=== PATIENT | female | born 1945 | race African-American/Black ===

== ENCOUNTER 2020-07-24 18:33 | Inpatient (IN) | payer MEDICARE, MEDICAID, SELFPAY ==
--- NOTE | ~2020-07-24 | CT_ITS ---
EXAMINATION: CT brain wo con EXAM DATE: 07/24/2020 20:04 INDICATION: Altered mental status. TECHNIQUE: Spiral CT of the head was performed without contrast. Axial, coronal and sagittal images were reviewed. The dose-length product (DLP) for this examination was 605.33 mGy-cm. The exposure w as tailored according to patient size, and iterative reconstruction (ASIR) was used as additional dos e reduction technique. There is no prior study for comparison. FINDINGS: There is no acute intraparenchymal hemorrhage. No evidence of intraparenchymal brain mass lesion. No evidence of acute infarction. Please note that initial head CT has limited sensitivity f or small or acute infarctions. Small old right parietotemporal lobe infarction. There is mild periv entricular and subcortical hypodensity, nonspecific but probably related to small vessel ischemic dis ease. There is moderate prominence of the sulci and ventricles related to cerebral atrophy. There is intracranial carotid arteriosclerosis. There are no extra-axial collections. There is no mass e ffect or midline shift. The orbits are unremarkable. Soft tissue is unremarkable. The visualized s inuses and mastoid air cells are well aerated. IMPRESSION: 1. No acute intracranial findings. 2. Chronic age related findings. 3. Small right parietotemporal lobe infarction. Reviewed, dictated and finalized at location A. ING SIGNAL OFFICER
--- NOTE | ~2020-07-24 | XR_ITS ---
EXAMINATION: XR barium swallow modified DATE: 07/25/2020 11:07 INDICATION: Aphasia. TECHNIQUE: The patient was given barium-containing material of multiple consistencies to swallow by t he speech pathologist while I performed fluoroscopy. Fluoroscopy exposure time was 1.9 minutes. The n umber of fluoroscopy images saved to the PACS was 1. Dose-area product was 1.289 Gy-cm^2. FINDINGS: There is reduced laryngeal elevation. There is intermittent laryngeal penetration with thin liquids. No aspiration. IMPRESSION: 1. Laryngeal penetration with thin liquids. No aspiration. 2. Please refer to the speech therapy report for recommendations. Reviewed, dictated and finalized at location A. OUT WORKER
--- NOTE | ~2020-07-24 | XR_ITS ---
EXAMINATION: XR chest 1V EXAM DATE: 07/24/2020 20:11 INDICATION: Transient alteration of awareness. TECHNIQUE: Portable AP frontal chest x-ray was obtained. There is no prior study for comparison. FINDINGS: The lungs are clear. There are no pleural effusions. Cardiac silhouette is prominent but magnified on this AP technique. There is no pneumothorax suspected. The bones and soft tissues are unremarkable. IMPRESSION: No acute cardiopulmonary findings. Reviewed, dictated and finalized at location A. OR INTERNET SALES CONSULTANT
--- NOTE | ~2020-07-24 | MR_ITS ---
EXAMINATION: MR brain/brain stem wo/w con DATE: 07/25/2020 11:38 INDICATION: Stroke. TECHNIQUE: Magnetic resonance imaging (MRI) of the brain and brainstem was performed without and with 14 mL MultiHance intravenous contrast. Sequences included sagittal and axial T1-weighted FSE, axial diffusion-weighted FS EPI, axial T2*-weighted GRE, axial T2-weighted FLAIR Propeller, and axial T2-we ighted Propeller. Postcontrast sequences included axial and coronal T1-weighted FSE. Apparent diffusi on coefficient (ADC) maps were created. COMPARISON: Head CT 07/24/2020 FINDINGS: There are scattered areas of nonspecific increased T2-weighted signal intensity in the cere bral white matter. There is an old infarct in right temporal parietal region. There is no intracrania l hemorrhage, acute infarction, or abnormal intracranial mass lesion. The ventricles are normal in si ze. The orbits are normal. There is mucosal thickening in the paranasal sinuses. There is a small lef t mastoid effusion. IMPRESSION: 1. 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 2. Moderate nonspecific cerebral white matter disease, which likely represents chronic small vessel i schemic disease. Reviewed, dictated and finalized at location A. DRIVER OPERATOR [place]ED IMPRESSION: 1. 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 2. Moderate nonspecific cerebral white matter disease, which likely represents chronic small vessel ischemic disease.
--- NOTE | 2020-07-24 18:31 | ED.AMS ---
HPI - Altered Mental Status General Chief Complaint: Altered Mental Status Stated Complaint: altered mental status Source: patient and EMS Mode of arrival: EMS Limitations: clinical condition and dementia History of Present Illness HPI narrative: Patient is a 75-year-old with a history of type 2 diabetes, schizophrenia, bipolar disorder who presents for evaluation of altered mental status. Patient reportedly has been deteriorating over the past 10 days, noted to last being normal on [place] cassie. Patient with cough, facility denied any fever, stated she was recently tested for Covid and negative. Patient currently not able to state her name. She is not giving any verbal complaint. She is awake and alert in the room. She does follow simple commands. No other family is present. Per family, Dinorah over the phone, she was talking normally yesterday. Pt had not been complaining of anything recently. Per family, staff was concerned that the patient was not eating or drinking as much lately. No fever, vomiting. No reported vomiting pain. Related Data Home Medications Medication Instructions Recorded Confirmed albuterol sulfate 2.5 mg INHALATION Q4H PRN 07/24/20 benzonatate 100 mg PO TID PRN 07/24/20 calcitriol 0.25 mcg PO DAILY 07/24/20 donepezil 10 mg PO HS 07/24/20 ferrous sulfate 325 mg PO DAILY 07/24/20 fluticasone furoate-vilanterol 1 inh INHALATION DAILY 07/24/20 [Breo Ellipta] metformin 500 mg PO BID 07/24/20 omeprazole 20 mg PO DAILY 07/24/20 pravastatin 40 mg PO DAILY 07/24/20 risperidone 2 mg PO BID 07/24/20 sertraline 75 mg DAILY 07/24/20 tramadol 50 mg PO Q6H PRN 07/24/20 Allergies Allergy/AdvReac Type Severity Reaction Status Date / Time No Known Allergies Allergy Verified 07/24/20 19:43 Review of Systems Review of Systems: ROS unobtainable: Yes unobtainable due to mental status PMFSH Past Medical History Medical History (Updated 07/24/20 @ 23:37 by Triny Luz MD) Bipolar disorder Dementia Hypertension Schizophrenia Type 2 diabetes mellitus Social History Social History (Updated 07/24/20 @ 18:45 by Triny Luz MD) Smoking status: Former smoker Alcohol intake: former Substance use: current Gender identity (if verbalized by the patient): Female Exam Narrative: Exam Narrative: GENERAL: Awake, alert, non verbal HEAD: Normocephalic, atraumatic. EYES: PERRLA and EOMI. ENT: Nares clear, no rhinorrhea or epistaxis. Mucous membranes moist. NECK: Supple. CHEST: No respiratory distress, breathing even and non labored HEART: Regular rate, sinus rhythm ABDOMEN:Non distended, non tender EXTREMITIES: Normal range of motion. No edema. SKIN: Warm, dry, no rash. NEURO:No focal deficits. Alert, following simple commands. Climate Change Analyst strength 5/5 bilaterally. Course Vital Signs Vital signs: Vital Signs Temperature 36.3 C L 07/24/20 18:32 Pulse Rate 81 07/24/20 18:32 Respiratory Rate 14 07/24/20 18:32 Blood Pressure 112/73 07/24/20 18:32 Pulse Oximetry 95 07/24/20 18:32 Temperature 36.3 C L 07/24/20 18:32 Pulse Rate 78 07/25/20 00:04 Respiratory Rate 16 07/25/20 00:04 Blood Pressure 116/51 L 07/25/20 00:04 Pulse Oximetry 97 07/25/20 00:04 MDM - Altered Mental Status MDM Narrative Medical decision making narrative: Patient presented for evaluation of decreased verbal responsiveness per care facility. At the time of assessment, ABCs are intact and vital signs are stable. Patient is not verbal for me but then is verbal for the nurse, then refuses her ABG. Patient states nothing is wrong with me. Then when I assessed the patient and I asked her to state her name she says nothing. Laboratory work-up and imaging work-up is relatively reassuring. No leukocytosis. No severe electrolyte derangement. No acute kidney injury. No UTI. No elevation in troponin. No evidence of thyrotoxicosis or hypothyroidism. Chest x-ray without evidence
[2020-07-24 18:32] VITALS: BP 112/73; PULSE 81; RESP 14; TEMP 36.3; O2SAT 95
--- NOTE | 2020-07-24 18:34 | ECG_ITS ---
Measurements Intervals [place] Rate: 82 P: 53 NE: 138 QRS: 2 QRSD: 103 T: 59 QT: 383 QTc: 450 Interpretive Statements SINUS RHYTHM VENTRICULAR PREMATURE COMPLEX BORDERLINE R WAVE PROGRESSION, ANTERIOR LEADS BORDERLINE T WAVE ABNORMALITY- HIGH LATERAL LEADS BORDERLINE ECG Electronically Signed On 07-25-2020 6:43:34 REMEDIAL MASSEUR by Bob Bellamy D.O.
--- NOTE | 2020-07-24 19:37 | PC.NURSE ---
resp unable to obtain abg, provider aware attempted to draw labs, unable to obtain,provider aware pt refusing, pt has guardian,provider to aid RN
[2020-07-24 19:40] VITALS: BP 113/84; PULSE 77; RESP 16
[2020-07-24] MEDS: SODIUM CHLORIDE 0.9% IV 1,000 ML 999 ML IV CONT (20:28)
[2020-07-24 20:29] VITALS: BP 119/65; PULSE 96; RESP 22; O2SAT 92
[2020-07-24 20:30] LABS: Basophils Absolute Auto 0.1 K/mm3 (0.0-0.1); Basophils Percent Auto 0.8 % (0.2-1.2); Eosinophils Absolute Auto 0.1 K/mm3 (0-0.3); Hematocrit 48.2 % (37.0-47.0); Hemoglobin 15.1 g/dL (12.0-15.0); Immature Granulocyte Absolute 0.01 K/mm3 (0.00-0.031); Immature Granulocyte Percent A 0.2 % (0-0.5); Lymphocytes Absolute Auto 3.38 K/mm3 (0.9-3.2); Lymphocytes Percent Auto 57.4 % (18.3-44.2); Mean Corpuscular HGB Conc 31.3 g/dl (32-36); Mean Corpuscular Volume 92.5 fl (80-100); Mean Platelet Volume 10.9 fl (7.4-10.4); Monocytes Absolute Auto 0.7 K/mm3 (0.1-0.6); Monocytes Percent Auto 12.2 % (2.6-8.5); Neutrophils Absolute Auto 1.7 K/mm3 (1.3-6.7); Neutrophils Percent Auto 28.4 % (45.5-73.1); Platelet Count Result 220 k/mm3 (150-375); Red Blood Count 5.21 M/mm3 (4.2-5.4); Red Cell Distribution Width 16.8 % (11.5-14.5); White Blood Count 5.9 K/mm3 (4.5-10.0)
[2020-07-24 20:40] LABS: INR 1.1; Prothrombin Time 14.5 Seconds (11.1-14.7)
[2020-07-24 20:41] LABS: Partial Thromboplastin Time 27.9 SECONDS (22.3-36.8)
[2020-07-24 20:43] LABS: Lactic Acid Reflex 1.5 mmol/L (0.7-2.1)
[2020-07-24 20:44] LABS: Alanine Aminotransferase 18 U/L (4-35); Albumin Level 4.2 g/dL (3.5-5.1); Alkaline Phosphatase 72 U/L (38-126); Ammonia < 9 umol/L (9-30); Anion Gap 6 mmol/L (8-16); Aspartate Amino Transferase 26 U/L (14-36); Bilirubin,Total 0.7 mg/dL (0.2-1.3); Blood Urea Nitrogen 17 mg/dL (7-17); Calcium 9.7 mg/dL (8.4-10.2); Carbon Dioxide 32 mmol/L (22-30); Chloride 103 mmol/L (98-107); Estimated CRCL calculation 50 ml/min; Estimated Glomerular Filt Rate > 60; Glucose 111 mg/dL (65-105); Potassium 4.3 mmol/L (3.4-5.0); Sodium 141 mmol/L (137-145)
[2020-07-24 20:56] LABS: Troponin I < 0.012 ng/mL (0.000-0.034)
[2020-07-24 21:01] LABS: Add Urine Microscopic? YES; Amorphous Sediment Urine Few; Appearance Urine Clear (Clear); Bilirubin Urine Negative (Negative); Blood Urine Negative (Negative); Color Urine Yellow (Yellow); Glucose Urine UA Negative (Negative); Ketones Urine Trace mg/dL (Negative); Leukocyte Esterase Ur Negative LEU/UL (Negative); Mucus Urine Few /lpf; Nitrate Urine Negative (Negative); Protein Urine 1+ mg/dL (Negative); RBC Urine 0-2 /hpf (0-2); Specific Grav Ur 1.027 (1.001-1.035); Squamous Epithelial Cell Urine Occasional /hpf (Few); WBC Urine 0-3 /hpf
[2020-07-25] VITALS (9 sets, daily range): BP systolic 112–138; BP diastolic 41–79; PULSE 61–78; RESP 16–20; TEMP 36–36.6; O2SAT 92–99; BMI 26.3
--- NOTE | 2020-07-25 01:09 | PM.IMHP ---
H&P: HPI History of Present Illness Date/Time: 07/25/20 01:09 Chief Complaint: acute altered mental status Narrative: This is a 75 year old Diabetic female with known schizophrenia and bipolar disorder who presented for evaluation of altered mental status. Apparently the patient is known to talk at her baseline and her was talking to her family over the phone yesterday. Today the patient has been nonverbal. The patient is awake and alert but seems to be staring off into space. She does acknowledge that I am in the room with her and seems to be following simple commands. She will not answer any of my questions. Routine labs were obtained in the ER and were unremarkable. CT brain did not demonstrate any acute intracranial findings. ER provider has consulted Neurology, Dr. Arias who has asked if we can admit the patient to the hospital to rule out acute CVA. No other history is obtainable at this time from the patient due to her clinical condition. Review of Systems Review of Systems: ROS unobtainable: Yes unobtainable due to mental status PMFSH Past Medical History Medical History Bipolar disorder Dementia Hypertension Schizophrenia Type 2 diabetes mellitus Family History Family History Other Unknown family medical history Social History Social History Smoking status: Former smoker Alcohol intake: former Substance use: unknown Gender identity (if verbalized by the patient): Female Comments Histories are not obtainable from the patient due to her mental status. Meds Home Medications and Allergies Home Medications Medication Instructions Recorded Confirmed Type albuterol sulfate 2.5 mg INHALATION Q4H PRN 07/24/20 07/25/20 History benzonatate 100 mg PO TID PRN 07/24/20 07/25/20 History calcitriol 0.25 mcg PO DAILY 07/24/20 07/25/20 History donepezil 10 mg PO HS 07/24/20 07/25/20 History ferrous sulfate 325 mg PO DAILY 07/24/20 07/25/20 History fluticasone furoate-vilanterol 1 inh INHALATION DAILY 07/24/20 07/25/20 History [Breo Ellipta] metformin 500 mg PO BID 07/24/20 07/25/20 History omeprazole 20 mg PO DAILY 07/24/20 07/25/20 History pravastatin 40 mg PO DAILY 07/24/20 07/25/20 History risperidone 2 mg PO BID 07/24/20 07/25/20 History sertraline 75 mg DAILY 07/24/20 07/25/20 History tramadol 50 mg PO Q6H PRN 07/24/20 07/25/20 History acetaminophen 650 mg PO Q8H PRN 07/25/20 07/25/20 History cholecalciferol (vitamin D3) 50,000 units PO MONTHLY 07/25/20 07/25/20 History ibuprofen 600 mg PO Q12H PRN 07/25/20 07/25/20 History multivitamin [Daily Multi-Vitamin] 1 tablet PO DAILY 07/25/20 07/25/20 History Allergies Allergy/AdvReac Type Severity Reaction Status Date / Time No Known Allergies Allergy Verified 07/25/20 03:46 Vital Signs Vital Signs - 24 hr 07/24/20 18:32 07/24/20 19:40 07/24/20 20:29 Temperature 36.3 C L Pulse Rate 81 77 96 Respiratory Rate 14 16 22 H Blood Pressure 112/73 113/84 119/65 Pulse Oximetry 95 92 07/25/20 00:04 Temperature Pulse Rate 78 Respiratory Rate 16 Blood Pressure 116/51 L Pulse Oximetry 97 Exam Const: General: alert, awake, tired appearing and uncomfortable Nutritional Appearance: well nourished Orientation/consciousness: Other orientation findings (aphasic+ ) HENMT: Head: normal to inspection General nose exam: Normal external nose present Face and sinus: normal facial exam Mouth: Yes Normal oral and palatal mucosa present and Yes oropharynx normal Eyes: Pupils: Equal, round and reactive pupils present Neck: Neck: supple and no JVD Thyroid: thyroid normal Lymphatic: lymphadenopathy not noted Resp: Effort & Inspection: normal respiratory effort Auscultation: clear to auscultation bilaterally Cardio: Rate: regular rate Rhythm: regular rhythm Heart sound
[2020-07-25] MEDS: SODIUM CHLORIDE 0.9% IV 1,000 ML 125 ML IV CONT ×2 (01:46→08:52)
--- NOTE | 2020-07-25 02:02 | ADMGEN ---
This patient, Monse Sheriff, was admitted to Medical Room 254-01. Patient/family oriented to hospital policies and general routines including ID bracelet, bed and alarms, visiting hours, pain management, procedures, bathroom and other care routines, personal items, smoking policy, room service/diet, and visiting hours. Information on how to activate the Rapid Response Team has been discussed. Patient/Family are encouraged to report perceived risks to care and to ask questions if they do not understand what they are told or what they should do.
[2020-07-25 03:11] LABS: Glucose Point of Care 70 (65-105)
[2020-07-25 05:42] LABS: Basophils Absolute Auto 0.1 K/mm3 (0.0-0.1); Basophils Percent Auto 0.9 % (0.2-1.2); Eosinophils Absolute Auto 0.1 K/mm3 (0-0.3); Eosinophils Percent Auto 1.3 % (0-4.4); Hematocrit 41.7 % (37.0-47.0); Hemoglobin 12.9 g/dL (12.0-15.0); Immature Granulocyte Absolute 0.01 K/mm3 (0.00-0.031); Immature Granulocyte Percent A 0.2 % (0-0.5); Lymphocytes Absolute Auto 2.86 K/mm3 (0.9-3.2); Lymphocytes Percent Auto 51.6 % (18.3-44.2); Mean Corpuscular HGB Conc 30.9 g/dl (32-36); Mean Corpuscular Hemoglobin 28.9 pg (26-34); Mean Corpuscular Volume 93.3 fl (80-100); Mean Platelet Volume 11.2 fl (7.4-10.4); Monocytes Absolute Auto 0.9 K/mm3 (0.1-0.6); Monocytes Percent Auto 15.5 % (2.6-8.5); Neutrophils Absolute Auto 1.7 K/mm3 (1.3-6.7); Neutrophils Percent Auto 30.5 % (45.5-73.1); Platelet Count Result 191 k/mm3 (150-375); Red Blood Count 4.47 M/mm3 (4.2-5.4); Red Cell Distribution Width 16.5 % (11.5-14.5); White Blood Count 5.5 K/mm3 (4.5-10.0)
[2020-07-25 05:48] LABS: Anion Gap 6 mmol/L (8-16); Blood Urea Nitrogen 14 mg/dL (7-17); Calcium 8.7 mg/dL (8.4-10.2); Carbon Dioxide 28 mmol/L (22-30); Chloride 106 mmol/L (98-107); Estimated CRCL calculation 56 ml/min; Estimated Glomerular Filt Rate > 60; Glucose 75 mg/dL (65-105); Magnesium 1.4 mg/dL (1.6-2.3); Potassium 3.6 mmol/L (3.4-5.0); Sodium 140 mmol/L (137-145)
[2020-07-25 06:02] LABS: Glucose Point of Care 76 (65-105)
[2020-07-25 07:45] LABS: Glucose Point of Care 73 (65-105)
[2020-07-25] MEDS: PANTOPRAZOLE SODIUM IV 40 MG VIAL IV PUSH (08:53)
[2020-07-25] MEDS: ASPIRIN 300 MG SUPPOSITORY RECTAL (08:53)
[2020-07-25] MEDS: MAGNESIUM SULFATE 3GM/D5W100ML 3 GM/100 ML BAG IVPB (10:16)
--- NOTE | 2020-07-25 11:17 | WPDNEUROLOGY ---
Neurology EEG Report General Information Date of Study: 07/25/20 TEST EEG DIAGNOSIS seizures CONDITION OF RECORDING awake drowsy and sleep EEG NUMBER [id number] CLINICAL HISTORY no particular history available EEG DESCRIPTION basic resting occipital frequency consists of low to medium voltage 8 to 9 hertz per 2nd alpha admixed with low-voltage 15 to 21 hertz per 2nd beta. Bilateral symmetrical sleep activity seen with symmetrical sleep spindles. Hyperventilation not done. Photic stimulation not done. Non paroxysmal. Nonfocal. Nonlateralizing. IMPRESSION No significant abnormalities noted in this low voltage record record
--- NOTE | 2020-07-25 12:20 | WPDNEURCNPN ---
Assessment and Plan Assessment and plan (1) Schizophrenia: Qualifiers: Schizophrenia type: unspecified Qualified Code(s): F20.9 - Schizophrenia, unspecified Code(s): F20.9 - Schizophrenia, unspecified Status: Chronic (2) Dementia: Qualifiers: Dementia type: unspecified type Dementia behavioral disturbance: without behavioral disturbance Qualified Code(s): F03.90 - Unspecified dementia without behavioral disturbance Code(s): F03.90 - Unspecified dementia without behavioral disturbance Status: Chronic (3) Impaired verbal communication: Code(s): F80.9 - Developmental disorder of speech and language, unspecified Status: Acute (4) Hypertension: Qualifiers: Hypertension type: unspecified Qualified Code(s): I10 - Essential (primary) hypertension Code(s): I10 - Essential (primary) hypertension Status: Chronic Additional Plan schizophrenia with other medical problems will like to obtain the EEG to rule out the possibility of seizures Consult date: 07/25/20 Time Seen: 12:00 HPI: Monse Sheriff is a 75 year old female 75 years old lady admitted to the hospital for the complaints of pain in the mental status at the baseline patient is known to talk to her family but subsequently became nonverbal patient is known to have bipolar disorder with schizophrenia in addition to hypertension and type 2 diabetes mellitus and reportedly she has been taking donepezil, sertraline and risperidone, MRI has documented old infarct the right temporal parietal region without any bleed routine lab with low magnesium Review of Systems Review of Systems: All systems reviewed & are unremarkable except as noted in HPI and below PMFSH Past Medical History Medical History Bipolar disorder Dementia Hypertension Schizophrenia Type 2 diabetes mellitus Family History Family History Other Unknown family medical history Social History Social History Smoking status: Former smoker Alcohol intake: former Substance use: unknown Gender identity (if verbalized by the patient): Female Meds Home Medications and Allergies Home Medications Medication Instructions Recorded Confirmed Type albuterol sulfate 2.5 mg INHALATION Q4H PRN 07/24/20 07/25/20 History benzonatate 100 mg PO TID PRN 07/24/20 07/25/20 History calcitriol 0.25 mcg PO DAILY 07/24/20 07/25/20 History donepezil 10 mg PO HS 07/24/20 07/25/20 History ferrous sulfate 325 mg PO DAILY 07/24/20 07/25/20 History fluticasone furoate-vilanterol 1 inh INHALATION DAILY 07/24/20 07/25/20 History [Breo Ellipta] metformin 500 mg PO BID 07/24/20 07/25/20 History omeprazole 20 mg PO DAILY 07/24/20 07/25/20 History pravastatin 40 mg PO DAILY 07/24/20 07/25/20 History risperidone 2 mg PO BID 07/24/20 07/25/20 History sertraline 75 mg DAILY 07/24/20 07/25/20 History tramadol 50 mg PO Q6H PRN 07/24/20 07/25/20 History acetaminophen 650 mg PO Q8H PRN 07/25/20 07/25/20 History cholecalciferol (vitamin D3) 50,000 units PO MONTHLY 07/25/20 07/25/20 History ibuprofen 600 mg PO Q12H PRN 07/25/20 07/25/20 History multivitamin [Daily Multi-Vitamin] 1 tablet PO DAILY 07/25/20 07/25/20 History Allergies Allergy/AdvReac Type Severity Reaction Status Date / Time No Known Allergies Allergy Verified 07/25/20 03:46 Vital Signs Vital Signs - 24 hr 07/24/20 18:32 07/24/20 19:40 07/24/20 20:29 Temperature 36.3 C L Pulse Rate 81 77 96 Respiratory Rate 14 16 22 H Blood Pressure 112/73 113/84 119/65 Pulse Oximetry 95 92 07/25/20 00:04 07/25/20 01:11 07/25/20 01:40 Temperature 36.5 C Pulse Rate 78 68 68 Respiratory Rate 16 16 Blood Pressure 116/51 L 128/79 Pulse Oximetry 97 95 07/25/20 01:41 07/25/20 04:00 07/25/20 05:39 Temperature 36.3 C L 36.0 C
--- NOTE | 2020-07-25 13:47 | PCSTNOTE ---
Please refer to the Modified Barium Swallow Evaluation in the EMR.
[2020-07-25 14:07] LABS: Glucose Point of Care 73 (65-105)
--- NOTE | 2020-07-25 16:35 | PM.IMPN ---
Progress Note: A&P Assessment and Plan (1) Impaired verbal communication: Code(s): F80.9 - Developmental disorder of speech and language, unspecified Status: Acute Assessment and Plan: Acute CVA verses manifestations of acute psychiatric illness. The patient has been placed in observation status. The patient has been intermittently talking throughout the day to different staff which leads me to believe this is most likely due to a psychiatric illness. MRI showed no acute abnormality EEG showed no acute seizure activity No acute signs of infection on chest x-ray or urinalysis Modified barium swallow recommended regular liquids and pureed diet since she is edentulous Neurology evaluated the patient and believes it is secondary to her psychiatric condition due to abnormal MRI any EEG findings he does not recommend any adjustments at this time I called the patient's group home facility who was concerned she had a UTI, stroke verses missing a few of her psychiatric medications. I informed them of the results and they feel comfortable with her return to the group home after she receives a COVID test. Will continue her psychiatric medications at this time and the group home facility will make sure she continues taking them as prescribed and makes any adjustments if necessary. Continue aspiration precautions, TSH was normal, vitamin B12 and folic acid were normal. Continue monitoring and getting a COVID test and plan for discharge tomorrow. (2) Dementia: Qualifiers: Dementia behavioral disturbance: without behavioral disturbance Dementia type: unspecified type Qualified Code(s): F03.90 - Unspecified dementia without behavioral disturbance Code(s): F03.90 - Unspecified dementia without behavioral disturbance Status: Chronic Assessment and Plan: resume donepezil (3) Bipolar disorder: Qualifiers: Active/Remission status: remission status unspecified Qualified Code(s): F31.9 - Bipolar disorder, unspecified Code(s): F31.9 - Bipolar disorder, unspecified Status: Chronic Assessment and Plan: Resume sertraline and risperidone (4) Type 2 diabetes mellitus: Qualifiers: Diabetes mellitus complication status: without complication Diabetes mellitus intermediate accountant insulin use: without jail use Qualified Code(s): E11.9 - Type 2 diabetes mellitus without complications Code(s): E11.9 - Type 2 diabetes mellitus without complications Status: Chronic Assessment and Plan: Normal glucose today. Will hold her metformin until she is back on a diabetic diet since she has been NPO today. Accu-Cheks, sliding scale insulin coverage, hypoglycemia protocol. (5) Schizophrenia: Qualifiers: Schizophrenia type: unspecified Qualified Code(s): F20.9 - Schizophrenia, unspecified Code(s): F20.9 - Schizophrenia, unspecified Status: Chronic Assessment and Plan: Resume risperidone (6) Hypertension: Qualifiers: Hypertension type: unspecified Qualified Code(s): I10 - Essential (primary) hypertension Code(s): I10 - Essential (primary) hypertension Status: Chronic Assessment and Plan: Blood pressure has been stable at 120 8/52 this morning. Monitor blood pressure. P.r.n. IV hydralazine with parameters as ordered. (7) Hypomagnesemia: Code(s): E83.42 - Hypomagnesemia Status: Acute Assessment and Plan: Magnesium was 1.4 today. This was replenished with IV MAG and will check in the morning. Time Spent With Patient Time with patient: 25
[2020-07-25 18:18] LABS: Glucose Point of Care 71 (65-105)
[2020-07-25] MEDS: DONEPEZIL HCL 10 MG TABLET PO (20:41)
[2020-07-25] MEDS: PANTOPRAZOLE 40 MG TABLET PO (20:42)
[2020-07-25 21:36] LABS: Glucose Point of Care 95 (65-105)
[2020-07-26] VITALS: PULSE 74
[2020-07-26 04:00] VITALS: BP 111/42; PULSE 64; PULSE 74; RESP 18; TEMP 36.4; O2SAT 98
[2020-07-26 06:32] LABS: Anion Gap 4 mmol/L (8-16); Blood Urea Nitrogen 10 mg/dL (7-17); Calcium 8.6 mg/dL (8.4-10.2); Carbon Dioxide 27 mmol/L (22-30); Chloride 107 mmol/L (98-107); Estimated CRCL calculation 56 ml/min; Estimated Glomerular Filt Rate > 60; Glucose 68 mg/dL (65-105); Magnesium 1.7 mg/dL (1.6-2.3); Potassium 3.7 mmol/L (3.4-5.0); Sodium 138 mmol/L (137-145)
[2020-07-26 07:47] LABS: Glucose Point of Care 103 (65-105)
[2020-07-26] MEDS: SERTRALINE HCL 25 MG TABLET 75 MG PO (08:48)
[2020-07-26] MEDS: calcitrioL 0.25 MCG CAPSULE PO (08:48)
[2020-07-26] MEDS: PANTOPRAZOLE 40 MG TABLET PO ×2 (08:49→20:07)
[2020-07-26] MEDS: PRAVASTATIN SODIUM 20 MG TABLET 40 MG PO (08:49)
[2020-07-26] MEDS: risperiDONE 1 MG TABLET 2 MG PO ×2 (08:49→16:49)
[2020-07-26] MEDS: FERROUS SULFATE 324 MG TABLET PO (08:49)
[2020-07-26] MEDS: MULTIVITAMINS THERAPEUTIC TAB (*BKC) 1 TABLET PO (08:50)
[2020-07-26 11:41] LABS: Glucose Point of Care 106 (65-105)
[2020-07-26 12:18] LABS: Add Urine Microscopic? YES; Appearance Urine Cloudy (Clear); Bacteria Urine Trace /hpf; Bilirubin Urine Negative (Negative); Blood Urine 1+ (Negative); Color Urine Yellow (Yellow); Glucose Urine UA Negative (Negative); Ketones Urine Negative (Negative); Leukocyte Esterase Ur 3+ LEU/UL (Negative); Mucus Urine Rare /lpf; Nitrate Urine Positive (Negative); Protein Urine Negative (Negative); Specific Grav Ur 1.014 (1.001-1.035); Squamous Epithelial Cell Urine Moderate /hpf (Few); WBC Urine >75 /hpf
--- NOTE | 2020-07-26 13:12 | PM.IMPN ---
Progress Note: A&P Assessment and Plan (1) UTI (urinary tract infection): Code(s): N39.0 - Urinary tract infection, site not specified Status: Acute Assessment and Plan: Repeat urinalysis with reflux culture due to his her urine smelling very strong.Abnormal urinalysis now consistent with possible urinary tract infection. Started the patient on IV ceftriaxone for possible UTI and will continue monitoring for urine culture results. 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 The patient has been placed in observation status. I called the patient's correction facility who was concerned she had a UTI, stroke verses missing a few of her psychiatric medications. I recheck the patient's urinalysis with a straight cath today because the nurse said she had a foul odor to her urine and UA was very abnormal with suspicions for a UTI so she was started on IV ceftriaxone. Will continue monitoring for urine culture results. MRI showed no acute abnormality EEG showed no acute seizure activity No acute signs of infection on chest x-ray Modified barium swallow recommended regular liquids and pureed diet since she is edentulous Neurology evaluated the patient and does not recommend any adjustments at this garry Will continue her psychiatric medications at this time and the correction facility will make sure she continues taking them as prescribed and makes any adjustments if necessary. Continue aspiration precautions, TSH was normal, vitamin B12 and folic acid were normal. Continue monitoring and getting a COVID test and plan for discharge once urine culture results return (3) Dementia: Qualifiers: Dementia type: unspecified type Dementia behavioral disturbance: without behavioral disturbance Qualified Code(s): F03.90 - Unspecified dementia without behavioral disturbance Code(s): F03.90 - Unspecified dementia without behavioral disturbance Status: Chronic Assessment and Plan: resume donepezil (4) Bipolar disorder: Qualifiers: Active/Remission status: remission status unspecified Qualified Code(s): F31.9 - Bipolar disorder, unspecified Code(s): F31.9 - Bipolar disorder, unspecified Status: Chronic Assessment and Plan: Resume sertraline and risperidone (5) Type 2 diabetes mellitus: Qualifiers: Diabetes mellitus intermediate school teacher insulin use: without intermediate school teacher use Diabetes mellitus complication status: without complication Qualified Code(s): E11.9 - Type 2 diabetes mellitus without complications Code(s): E11.9 - Type 2 diabetes mellitus without complications Status: Chronic Assessment and Plan: Normal glucose today, 68. Will hold her metformin. Accu-Cheks, sliding scale insulin coverage, hypoglycemia protocol. (6) Schizophrenia: Qualifiers: Schizophrenia type: unspecified Qualified Code(s): F20.9 - Schizophrenia, unspecified Code(s): F20.9 - Schizophrenia, unspecified Status: Chronic Assessment and Plan: Resume risperidone (7) Hypertension: Qualifiers: Hypertension type: unspecified Qualified Code(s): I10 - Essential (primary) hypertension Code(s): I10 - Essential (primary) hypertension Status: Chronic Assessment and Plan: Blood pressure has been stable at 111/42 this morning. Monitor blood pressure.
[2020-07-26 14:00] VITALS: BP 103/48; PULSE 86; RESP 18; TEMP 36.9; O2SAT 100
[2020-07-26 16:47] LABS: Glucose Point of Care 82 (65-105)
[2020-07-26 17:42] LABS: SARS-CoV-2 RNA PCR Negative
[2020-07-26 20:00] VITALS: PULSE 79; RESP 18; O2SAT 99
[2020-07-26] MEDS: DONEPEZIL HCL 10 MG TABLET PO (20:07)
[2020-07-26 20:18] LABS: Glucose Point of Care 109 (65-105)
[2020-07-26 21:54] VITALS: BP 130/50; PULSE 79; RESP 18; TEMP 37; O2SAT 99
[2020-07-26] MEDS: BUDESONIDE/FORMOTEROL (*SP) 160-4.5 MCG 6 GM INH 2 PUFF INHALATION (23:04)
[2020-07-27 05:43] VITALS: BP 128/58; PULSE 75; RESP 16; TEMP 36.6; O2SAT 100
[2020-07-27 08:00] LABS: Glucose Point of Care 90 (65-105)
[2020-07-27] MEDS: risperiDONE 1 MG TABLET 2 MG PO ×2 (08:27→17:16)
[2020-07-27] MEDS: SERTRALINE HCL 25 MG TABLET 75 MG PO (08:27)
[2020-07-27] MEDS: PRAVASTATIN SODIUM 20 MG TABLET 40 MG PO (08:28)
[2020-07-27] MEDS: MULTIVITAMINS THERAPEUTIC TAB (*BKC) 1 TABLET PO (08:28)
[2020-07-27] MEDS: PANTOPRAZOLE 40 MG TABLET PO ×2 (08:28→20:09)
[2020-07-27] MEDS: calcitrioL 0.25 MCG CAPSULE PO (08:28)
[2020-07-27] MEDS: FERROUS SULFATE 324 MG TABLET PO (08:28)
[2020-07-27] MEDS: BUDESONIDE/FORMOTEROL (*SP) 160-4.5 MCG 6 GM INH 2 PUFF INHALATION (08:41)
--- NOTE | 2020-07-27 10:44 | PM.DS ---
DS: Admitting Diagnosis Admitting Diagnosis Admitting Diagnosis: AMS DS: Discharge Diagnosis Discharge Diagnosis (1) UTI (urinary tract infection): Code(s): N39.0 - Urinary tract infection, site not specified Status: Acute Assessment and Plan: Initial urinalysis was normal on arrival. Repeat urinalysis with reflux culture due to his her urine smelling very strong.Abnormal urinalysis now consistent with possible urinary tract infection. Started the patient on IV ceftriaxone for possible UTI and will continue monitoring for urine culture results. Confusion most likely secondary to underlying UTI Patient's mental status is much improved since yesterday after starting IV antibiotics. Urine cultures are currently pending, blood cultures are negative to date. I feel comfortable at this time discharging her to continue cefdinir oral antibiotics for 6 more days and continue monitoring her urine culture results for any adjustments or changes. 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 The patient has been placed in observation status. I called the patient's [facility] facility who was concerned she had a UTI, stroke verses missing a few of her psychiatric medications. I recheck the patient's urinalysis with a straight cath today because the nurse said she had a foul odor to her urine and UA was very abnormal with suspicions for a UTI so she was started on IV ceftriaxone. Will continue monitoring for urine culture results. MRI showed no acute abnormality EEG showed no acute seizure activity No acute signs of infection on chest x-ray Modified barium swallow recommended regular liquids and pureed diet since she is edentulous Neurology evaluated the patient and does not recommend any adjustments at this time TSH was normal, vitamin B12 and folic acid were normal. Continue with her home medications as prescribed. (3) Dementia: Qualifiers: Dementia behavioral disturbance: without behavioral disturbance Dementia type: unspecified type Qualified Code(s): F03.90 - Unspecified dementia without behavioral disturbance Code(s): F03.90 - Unspecified dementia without behavioral disturbance Status: Chronic Assessment and Plan: resume donepezil (4) Bipolar disorder: Qualifiers: Active/Remission status: remission status unspecified Qualified Code(s): F31.9 - Bipolar disorder, unspecified Code(s): F31.9 - Bipolar disorder, unspecified Status: Chronic Assessment and Plan: Resume sertraline and risperidone (5) Type 2 diabetes mellitus: Qualifiers: Diabetes mellitus complication status: without complication Diabetes mellitus intermediate teacher insulin use: without intermediate teacher use Qualified Code(s): E11.9 - Type 2 diabetes mellitus without complications Code(s): E11.9 - Type 2 diabetes mellitus without complications Status: Chronic Assessment and Plan: Normal glucose today, 90. Will hold her metformin. Accu-Cheks, sliding scale insulin coverage, hypoglycemia protocol. (6) Schizophrenia: Qualifiers: Schizophrenia type: unspecified Qualified Code(s): F20.9 - Schizophrenia, unspecified Code(s): F20.9 - Schizophrenia, unspecified Status: Chronic Assessment and Plan: Resume risperidone (7) Hypertension: Qualifiers: Hypertension type: unspecified Qualified Code(s): I10 - Essential (primary) hypertension Code(s)
[2020-07-27 11:43] LABS: Glucose Point of Care 86 (65-105)
[2020-07-27 14:00] VITALS: BP 125/55; PULSE 86; RESP 18; TEMP 36.6; O2SAT 99
[2020-07-27 17:06] LABS: Glucose Point of Care 105 (65-105)
[2020-07-27 20:00] VITALS: PULSE 86; RESP 18; O2SAT 99
[2020-07-27] MEDS: DONEPEZIL HCL 10 MG TABLET PO (20:09)
[2020-07-27 20:28] LABS: Glucose Point of Care 95 (65-105)
[2020-07-27 21:51] VITALS: BP 111/59; PULSE 83; RESP 18; TEMP 36.6; O2SAT 94
[2020-07-28] MEDS: BUDESONIDE/FORMOTEROL (*SP) 160-4.5 MCG 6 GM INH 2 PUFF INHALATION (01:37)
--- NOTE | 2020-07-28 02:05 | PC.NURSE ---
report given to ems and patient transferred back to [facility]. belongings returned.
--- NOTE | 2020-08-01 13:11 | PC.NURSE ---
Blood cx are negative.
== END 2020-07-28 02:13 | DRG 690 ==
LOC: ANHED 07-25 00:14 → ANH2MED 07-25 00:45
PROVIDERS: Physician Assistant; Admitting Provider Family Medicine; Emergency Provider Emergency Medicine; Visit Provider Family Medicine
DX: N39.0 Urinary tract infection, site not specified (principal); B96.20 Unspecified Escherichia coli [E. coli] as the cause of diseases classified elsewhere; F03.90 Unspecified dementia, unspecified severity, without behavioral disturbance, psychotic disturbance, mood disturbance, and anxiety; F80.9 Developmental disorder of speech and language, unspecified; Z20.822 Contact with and (suspected) exposure to COVID-19; E11.9 Type 2 diabetes mellitus without complications; I10 Essential (primary) hypertension; E83.42 Hypomagnesemia; F31.9 Bipolar disorder, unspecified; F20.9 Schizophrenia, unspecified; Z87.891 Personal history of nicotine dependence; Z79.84 Long term (current) use of oral hypoglycemic drugs; Z79.899 Other long term (current) drug therapy
CPT/HCPCS: 36415; 51701; 70450; 70553; 71045; 80048; 80053; 81001; 82140; 82607; 82746; 82948; 83605; 83735; 84443; 84484; 85025; 85610; 85730; 87040; 87077; 87086; 87088; 87186; 92611; 93005; 94640; 95816; 96361; 96365; 96367; 96375; 97110; 97161; 97165; 99285; A9270; A9577; C9113; C9803; G0378; J0696; J3475; J7030; U0003

== ENCOUNTER 2020-10-01 22:52 | Emergency (ER) | payer MEDICARE, MEDICAID, SELFPAY ==
--- NOTE | ~2020-10-01 | CT_ITS ---
EXAMINATION: CT brain wo con DATE: 10/01/2020 23:36 INDICATION: Syncope. TECHNIQUE: Computed tomography (CT) of the head was performed without intravenous contrast. The mA wa s adjusted according to patient size. Iterative reconstruction technique was employed. The dose-lengt h product was 605.33 mGy-cm. COMPARISON: Head CT 07/24/20, brain MRI 07/25/2020 FINDINGS: There are scattered areas of low attenuation in the cerebral white matter. There is a small old infarct in right parietal lobe. There is no intracranial hemorrhage, acute infarction, or abnorm al intracranial mass lesion. The ventricles are normal in size. The orbits are normal. The paranasal sinuses are clear. The mastoid air cells are normal. IMPRESSION: 1. 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 2. Mild nonspecific cerebral white matter disease, which likely represents chronic small vessel ische richard disease. Reviewed, dictated and finalized at location A. IMPRESSION: 1. 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 2. Mild nonspecific cerebral white matter disease, which likely represents early intervention specialist norma small vessel ischemic disease.
--- NOTE | ~2020-10-01 | XR_ITS ---
EXAMINATION: XR chest 1V DATE: 10/01/2020 23:38 INDICATION: Syncope. TECHNIQUE: A single frontal view of the chest was obtained. COMPARISON: Chest single view 07/24/20 FINDINGS: There are mild airspace opacities in right lower lung zone. No pleural effusion or pneumoth orax. The heart size is normal. IMPRESSION: 1. Mild airspace opacities in right lower lung zone, consistent with atelectasis versus pneumonia. Reviewed, dictated and finalized at location A. IMPRESSION: 1. Mild airspace opacities in right lower lung zone, consistent with atelectasi s versus pneumonia.
[2020-10-01 22:53] VITALS: BP 130/66; PULSE 81; RESP 21; TEMP 36.9; O2SAT 100
--- NOTE | 2020-10-01 23:02 | ECG_ITS ---
Measurements Intervals [place] Rate: 78 P: 0 CA: 135 QRS: 7 QRSD: 79 T: 49 QT: 372 QTc: 426 Interpretive Statements SINUS RHYTHM VENTRICULAR PREMATURE COMPLEX DELAYED PRECORDIAL R/S TRANSITION BASELINE ARTIFACT- II, II BORDERLINE ECG Electronically Signed On 10-02-2020 7:09:51 CDT by Bob Bellamy D.O.
[2020-10-01 23:03] VITALS: RESP 14
[2020-10-01 23:50] LABS: Basophils Absolute Auto 0.1 K/mm3 (0.0-0.1); Basophils Percent Auto 0.9 % (0.2-1.2); Eosinophils Absolute Auto 0.1 K/mm3 (0-0.3); Eosinophils Percent Auto 1.9 % (0-4.4); Hematocrit 43.2 % (37.0-47.0); Hemoglobin 13.6 g/dL (12.0-15.0); Immature Granulocyte Absolute 0.01 K/mm3 (0.00-0.031); Immature Granulocyte Percent A 0.1 % (0-0.5); Lymphocytes Absolute Auto 3.57 K/mm3 (0.9-3.2); Lymphocytes Percent Auto 51.7 % (18.3-44.2); Mean Corpuscular HGB Conc 31.5 g/dl (32-36); Mean Corpuscular Hemoglobin 30.2 pg (26-34); Mean Corpuscular Volume 95.8 fl (80-100); Mean Platelet Volume 11.4 fl (7.4-10.4); Monocytes Absolute Auto 0.7 K/mm3 (0.1-0.6); Monocytes Percent Auto 9.7 % (2.6-8.5); Neutrophils Absolute Auto 2.5 K/mm3 (1.3-6.7); Neutrophils Percent Auto 35.7 % (45.5-73.1); Platelet Count Result 196 k/mm3 (150-375); Red Blood Count 4.51 M/mm3 (4.2-5.4); Red Cell Distribution Width 14.6 % (11.5-14.5); White Blood Count 6.9 K/mm3 (4.5-10.0)
[2020-10-02 00:15] VITALS: BP 138/67; PULSE 84; RESP 11; O2SAT 98
--- NOTE | 2020-10-02 00:26 | ED.GENADULT ---
HPI - General Adult General Chief complaint: Altered Mental Status Stated complaint: unresponsive? Time Seen by Provider: 10/01/20 23:14 History of Present Illness HPI narrative: Patient is a 75-year-old female who presents the emergency department with chief complaint of altered mental status. The patient was sent from a local facility where she currently is a resident of after she had an episode where the staff reported that she became unresponsive reportedly the patient was unresponsive and not talking for approximately 15 minutes prior to EMS being notified upon EMS arrival the patient was awake alert able to answer questions and asked at her current baseline. The patient states that she just wants to go back to the place where she lives. Patient denies chest pain denies shortness of breath denies any other complaint Related Data Home Medications Medication Instructions Recorded Confirmed Breo Ellipta 1 inh INHALATION DAILY 07/24/20 07/25/20 albuterol sulfate 2.5 mg INHALATION Q4H PRN 07/24/20 07/25/20 benzonatate 100 mg PO TID PRN 07/24/20 07/25/20 calcitriol 0.25 mcg PO DAILY 07/24/20 07/25/20 donepezil 10 mg PO HS 07/24/20 07/25/20 ferrous sulfate 325 mg PO DAILY 07/24/20 07/25/20 metformin 500 mg PO BID 07/24/20 07/25/20 omeprazole 20 mg PO DAILY 07/24/20 07/25/20 pravastatin 40 mg PO DAILY 07/24/20 07/25/20 risperidone 2 mg PO BID 07/24/20 07/25/20 sertraline 75 mg DAILY 07/24/20 07/25/20 tramadol 50 mg PO Q6H PRN 07/24/20 07/25/20 acetaminophen 650 mg PO Q8H PRN 07/25/20 07/25/20 cholecalciferol (vitamin D3) 50,000 units PO MONTHLY 07/25/20 07/25/20 ibuprofen 600 mg PO Q12H PRN 07/25/20 07/25/20 multivitamin [Daily Multi-Vitamin] 1 tablet PO DAILY 07/25/20 07/25/20 Allergies Allergy/AdvReac Type Severity Reaction Status Date / Time No Known Allergies Allergy Verified 07/25/20 03:46 Review of Systems Review of Systems: Narrative: A 10 system review of systems was completed on the patient and is negative except for what is stated in the HPI. Nursing and ancillary documentation was reviewed. [facility] Past Medical History Medical History Bipolar disorder Dementia Hypertension Schizophrenia Type 2 diabetes mellitus Family History Family History Other Unknown family medical history Social History Social History Smoking status: Former smoker Alcohol intake: former Substance use: unknown Gender identity (if verbalized by the patient): Female Exam Narrative: Exam Narrative: GENERAL: Well-appearing, well-nourished, and in no acute distress. HEAD: Normocephalic, atraumatic. EYES: PERRLA and EOMI. ENT: Nares clear, no rhinorrhea or epistaxis. Mucous membranes moist. NECK: Supple. CHEST: Clear to auscultation. No respiratory distress. HEART: Regular rate and rhythm. No murmur heard. Normal peripheral pulses. ABDOMEN: Soft, nontender, nondistended, normal active bowel sounds. EXTREMITIES: Normal range of motion. No edema. SKIN: Warm, dry, no rash. NEURO: No focal deficits. Alert and oriented x3. PSYCH: Normal mood and affect. Course Course Emergency Course: EKG sinus rhythm with a rate of [address] elevation or ST depression there are occasional PVCs noted on the exam Vital Signs Vital signs: Vital Signs Temperature 36.9 C 10/01/20 22:53 Pulse Rate 81 10/01/20 22:53 Respiratory Rate 21 H 10/01/20 22:53 Blood Pressure 130/66 10/01/20 22:53 Pulse Oximetry 100 10/01/20 22:53 Temperature 36.9 C 10/01/20 22:53 Pulse Rate 81 10/01/20 22:53 Respiratory Rate 14 10/01/20 23:03 Blood Pressure 130/66 10/01/20 22:53 Pulse Oximetry 100 10/01/20 22:53 Medical Decision Making Vital Signs Vital Signs: Vital Signs Temperature 36.9 C 10/01/20 22:53 Pulse Rate 81 10/01/20 2
--- NOTE | 2020-10-02 00:40 | PC.NURSE ---
Patient incontinent and urinated prior to insertion of straight catheter for collection of urine specimen. NIHARIKA Miles notified.
[2020-10-02 01:11] LABS: Alanine Aminotransferase 10 U/L (4-35); Albumin Level 3.8 g/dL (3.5-5.1); Alkaline Phosphatase 65 U/L (38-126); Anion Gap 3 mmol/L (8-16); Aspartate Amino Transferase 22 U/L (14-36); Bilirubin,Total 0.5 mg/dL (0.2-1.3); Blood Urea Nitrogen 14 mg/dL (7-17); Calcium 8.9 mg/dL (8.4-10.2); Carbon Dioxide 29 mmol/L (22-30); Chloride 109 mmol/L (98-107); Estimated Glomerular Filt Rate > 60; Glucose 99 mg/dL (65-105); Potassium 4.6 mmol/L (3.4-5.0); Sodium 141 mmol/L (137-145)
--- NOTE | 2020-10-02 01:13 | PC.NURSE ---
Patient states she feels as if she needs to urinate. Urine specimen to be collected via clean catch.
[2020-10-02 01:20] LABS: Add Urine Microscopic? YES; Appearance Urine Cloudy (Clear); Bacteria Urine Trace /hpf; Bilirubin Urine Negative (Negative); Blood Urine Negative (Negative); Color Urine Yellow (Yellow); Glucose Urine UA Negative (Negative); Ketones Urine Negative (Negative); Leukocyte Esterase Ur Trace LEU/UL (Negative); Mucus Urine Moderate /lpf; Nitrate Urine Negative (Negative); Protein Urine Negative (Negative); RBC Urine 0-2 /hpf (0-2); Specific Grav Ur 1.018 (1.001-1.035); Squamous Epithelial Cell Urine Many /hpf (Few); WBC Urine 0-3 /hpf
[2020-10-02 01:36] VITALS: BP 137/71; PULSE 91; RESP 18; O2SAT 97
--- NOTE | 2020-10-02 02:27 | PC.NURSE ---
called [facility] to request transport. ETA 30 minutes
--- NOTE | 2020-10-02 03:19 | PC.NURSE ---
[facility] here.
[2020-10-02 03:29] VITALS: BP 158/83; PULSE 96; RESP 16; TEMP 36.6; O2SAT 97
== END 2020-10-02 03:31 ==
PROVIDERS: Emergency Provider Emergency Medicine
DX: R55 Syncope and collapse (principal); F03.90 Unspecified dementia, unspecified severity, without behavioral disturbance, psychotic disturbance, mood disturbance, and anxiety; I10 Essential (primary) hypertension; E11.9 Type 2 diabetes mellitus without complications; F20.9 Schizophrenia, unspecified; F31.9 Bipolar disorder, unspecified; Z79.84 Long term (current) use of oral hypoglycemic drugs; Z87.891 Personal history of nicotine dependence; I49.3 Ventricular premature depolarization; R94.31 Abnormal electrocardiogram [ECG] [EKG]
CPT/HCPCS: 36415; 70450; 71045; 80053; 81001; 85025; 93005; 99284